=== PATIENT | female | born 1975 | race African-American/Black ===

== ENCOUNTER → 2017-12-01 09:40 | Outpatient (CLI) | payer MEDICAID, SELFPAY ==
--- NOTE | 2017-12-01 10:07 | EKG12_ITS ---
Test Reason : PREOP Blood Pressure : / mmHG Vent. Rate : 060 BPM Atrial Rate : 060 BPM P-R Int : 174 ms QRS Dur : 070 ms QT Int : 424 ms P-R-T Axes : 046 024 003 degrees QTc Int : 424 ms Normal sinus rhythm Low voltage QRS Septal infarct , age undetermined Abnormal ECG No previous ECGs available Confirmed by YURI PAYNE, ROSINA ([id number]), fan mail editor JUSTYNA NICOLAS ([id number]) on 12/02/2017 9:20:02 AM Referred By: Aj Fairbanks Confirmed By:ROSINA WELCH MD
[2017-12-01 11:02] LABS: Hematocrit 36.9 % (37-47); Hemoglobin 12.2 g/dl (12.0-15.0); Mean Corp Hgb Conc 33.1 g/gl (32-36); Mean Corpuscular Hgb 30.6 pg (27.0-32.0); Mean Corpuscular Volume 92.5 fL (81-99); Mean Platelet Vol. 10.1 fl (6.2-12.0); Platelet Count 268 K/mm3 (150-450); RBC Distribution Width CV 13.9 % (11.6-14.6); RBC Distribution Width SD 46.1 fl (35.1-43.9); Red Blood Count 3.99 M/mm3 (4.2-5.4); White Blood Count 6.8 K/mm3 (4.4-11.0)
[2017-12-01 11:06] LABS: Scan Indicated on CBC? Y/N NO
[2017-12-01 11:32] LABS: Anion Gap 4 (5-15); BUN 11 mg/dL (7-18); BUN/Creat Ratio 13.4 RATIO (10-20); Chloride 113 mmol/L (98-107); Creatinine, Serum 0.82 mg/dL (0.55-1.02); EST Glomerular Filtration Rate 81 mL/min (>60); Est Glom Filt Rate - Afr Amer 97 mL/min (>60); Glucose 86 mg/dL (74-106); Potassium 3.9 mmol/L (3.5-5.1); Sodium Level 144 mmol/L (136-145)
== END ==
PROVIDERS: Visit Provider Otolaryngology
DX: Z01.818 Encounter for other preprocedural examination (principal)
CPT/HCPCS: 36415; 80048; 85027; 93005

== ENCOUNTER → 2017-12-05 16:34 | Outpatient (CLI) | payer MEDICAID, SELFPAY ==
--- NOTE | 2017-12-05 12:40 | ADN_PTH ---
PATIENT: SANJIV KENNEY LOC: [facility] U#:[id number] AGE/SX: 50/F ROOM: RE12/05/[address]: Dr. Aj Fairbanks MD : 1975 BED: DIS: SPEC #: [id number] RECD: 12/05/17 15:28 STATUS: MONICA HONORIO #: [id number] BETH: 12/05/17 12:[address]: Aj Fairbanks DEPT: SURGICAL PATHOLOGY RECD BY: Shon Moss ENTERED: 12/06/17 10:47 SP TYPE: Adenoids WINDY DR: MARYA Tissues: Adenoid, NOS Procedures: Surgery Specimen Level III HEADER OPERATION: Adenoidectomy PRE-OP DIAGNOSIS: Nasal congestion, hypertrophy of adenoids TISSUE SUBMITTED: Adenoids MICROSCOPIC DIAGNOSIS Adenoids: Reactive for hyperplasia. Focal actinomyces colonization. SJ:emily 12/07/17 TC:5 MICROSCOPIC DESCRIPTION Slides are reviewed. GROSS DESCRIPTION Received is one container designated adenoids. The specimen is received in a suction-bag device and consists of frothy pink-vuong material in aggregate measuring 2.5 x 2 x 0.7 cm. [employer] sections are submitted in one cassette. /RY:sp 12/05/17 TC: 5 CPT: 38796
== END ==
PROVIDERS: Visit Provider Otolaryngology
DX: J35.2 Hypertrophy of adenoids (principal)
CPT/HCPCS: 88304